=== PATIENT | female | born 1995 | race Two or more races ===

== ENCOUNTER 2021-02-10 06:46 | Inpatient (IN) | payer OTHER ==
[2021-02-10 07:43] VITALS: BMI 38.0
[2021-02-10 07:45] LABS: BASO % 0.3 % (0-2.0); EOS % 0.6 % (0-4.5); HEMATOCRIT 36.4 % (32.4-45.2); HEMOGLOBIN 12.4 GM/dL (10.7-15.3); LYMPH % 22.8 % (8-40); MCH 30.4 pg (25.7-33.7); MEAN CELL VOLUME 89.4 fl (80-96); NEUT % 69.3 % (42.8-82.8); PLATELET COUNT 179 10^3/uL (134-434); RBC 4.07 M/mm3 (3.60-5.2); RDW 14.4 % (11.6-15.6); WHITE BLOOD COUNT 11.5 K/mm3 (4.0-10.0)
[2021-02-10 07:53] LABS: INR 0.83 (0.83-1.09); PROTHROMBIN TIME (PATIENT) 10.3 SEC (9.7-13.0)
[2021-02-10 07:56] LABS: ACTIVATED PTT 26.9 SECONDS (25.2-36.5)
[2021-02-10] MEDS ORDERED: OXYTOCIN 30 UNITS in 0.9% NS 30 UNIT/500 ML INFUS.BAG IVPB SCH (08:00)
[2021-02-10] MEDS ORDERED: ELECTROLYTE-148 SOLN 1,000 ML IV SCH (08:00)
[2021-02-10] MEDS ORDERED: OXYTOCIN 30 UNITS in 0.9% NS 30 UNIT/500 ML INFUS.BAG IVPB ONE (08:07)
[2021-02-10 08:11] LABS: CALCIUM 8.9 mg/dL (8.5-10.1)
[2021-02-10 08:12] LABS: BLOOD UREA NITROGEN 8.2 mg/dL (7-18)
[2021-02-10] MEDS ORDERED: FENTANYL/BUPIVACAINE/NS/PF - PCEA - 50 ML DISP.SYRIN EP ONE (08:14)
[2021-02-10] MEDS ORDERED: PCA PUMP NR ONE (08:14)
[2021-02-10 08:16] LABS: CREATININE 0.5 mg/dL (0.55-1.3)
[2021-02-10] MEDS: FENTANYL/BUPIVACAINE/NS/PF - PCEA - 50 ML DISP.SYRIN EP SCH (08:50)
[2021-02-10 09:21] LABS: HIV INTERPRETATION NEGATIVE (NEGATIVE)
[2021-02-10] MEDS ORDERED: NALOXONE HCL 0.4 MG/ML VIAL IVPUSH PRN (09:54)
[2021-02-10] MEDS ORDERED: OXYTOCIN 20 UNITS in 0.9% NS 20 UNIT/1,000 ML INFUS.BAG IV ONE (11:11)
[2021-02-10] MEDS ORDERED: LIDOCAINE HCL 1% PRESERVATIVE FREE - 30ML VIAL ONE (11:11)
[2021-02-10] MEDS ORDERED: METHYLERGONOVINE MALEATE 0.2 MG/1 ML AMP IM PRN (11:48)
[2021-02-10] MEDS ORDERED: BENZOCAINE 20% 57 GM BOTTLE TP PRN (11:48)
[2021-02-10] MEDS ORDERED: BENZOCAINE 28 GM HEMORRHOIDAL OINTMENT TP PRN (11:48)
[2021-02-10] MEDS ORDERED: oxyCODONE HCL 5 MG TABLET PO PRN (11:48)
[2021-02-10] MEDS ORDERED: BISACODYL 10 MG SUPP.RECT RC PRN (11:48)
[2021-02-10] MEDS ORDERED: WITCH HAZEL 50% (TUCKS) 40 PAD/JAR PAD TP PRN (11:48)
[2021-02-10] MEDS ORDERED: IBUPROFEN 600 MG TABLET (FP) PO PRN (11:48)
[2021-02-10] MEDS ORDERED: ACETAMINOPHEN 325 MG TABLET (FP) PO PRN (11:48)
[2021-02-10] MEDS ORDERED: OXYTOCIN 20 UNITS in 0.9% NS 20 UNIT/1,000 ML INFUS.BAG IV SCH (12:00)
[2021-02-11 09:09] LABS: BASO % 0.6 % (0-2.0); EOS % 1.1 % (0-4.5); HEMATOCRIT 32.2 % (32.4-45.2); HEMOGLOBIN 11.1 GM/dL (10.7-15.3); LYMPH % 27.1 % (8-40); MCH 30.8 pg (25.7-33.7); MCHC 34.5 g/dl (32.0-36.0); MEAN CELL VOLUME 89.5 fl (80-96); MEAN PLT VOLUME 10.5 fl (7.5-11.1); MONO % 7.2 % (3.8-10.2); PLATELET COUNT 163 10^3/uL (134-434); RDW 14.1 % (11.6-15.6); WHITE BLOOD COUNT 10.4 K/mm3 (4.0-10.0)
[2021-02-11] MEDS: PRENATAL VITAMINS W/ FOLIC ACID TABLET (FP) PO SCH (09:39)
[2021-02-11] MEDS ORDERED: SENNOSIDES/DOCUSATE COMBO (SENNA PLUS) TABLET (UD) PO PRN (22:00)
[2021-02-12] MEDS: FENTANYL/BUPIVACAINE/NS/PF - PCEA - 50 ML DISP.SYRIN EP SCH (08:47)
[2021-02-12] MEDS: PRENATAL VITAMINS W/ FOLIC ACID TABLET (FP) PO SCH (09:27)
[2021-02-12 09:30] VITALS: BP 116/85; PULSE 93; TEMP 98.2
== END 2021-02-12 12:39 | disposition home or self-care (01) | DRG 807 ==
LOC: JLDR 06:46 → J3W 16:00
PROVIDERS: ADMIT Obstetrics & Gynecology; ATTEND Obstetrics & Gynecology
PROC: 10E0XZZ Delivery of Products of Conception, External Approach (ICD-10-PCS; principal; 2021-02-10)
PROC: 0W8NXZZ Division of Female Perineum, External Approach (ICD-10-PCS; 2021-02-10)
DX: O70.0 First degree perineal laceration during delivery (principal); Z37.0 Single live birth; Z3A.40 40 weeks gestation of pregnancy
CPT/HCPCS: 36415; 59409; 80048; 85025; 85610; 85730; 86780; 86850; 86900; 86901; 87389; C9803; U0003; U0005

== ENCOUNTER 2022-10-26 08:26 | Inpatient (IN) | payer OTHER ==
[2022-10-26] MEDS ORDERED: AMPICILLIN SODIUM 2 GM VIAL ONE (09:09)
[2022-10-26] MEDS ORDERED: AMPICILLIN - 2 GM in SODIUM CHLORIDE 100 ML IVPB ONE (09:15)
[2022-10-26] MEDS ORDERED: OXYTOCIN 30 UNITS in 0.9% NS 30 UNIT/500 ML INFUS.BAG IVPB SCH (09:45)
[2022-10-26] MEDS ORDERED: ELECTROLYTE-148 SOLN 1,000 ML IV SCH (09:45)
[2022-10-26 10:04] VITALS: BMI 38.0
[2022-10-26] MEDS ORDERED: OXYTOCIN 30 UNITS in 0.9% NS 30 UNIT/500 ML INFUS.BAG IVPB ONE (10:11)
[2022-10-26 10:15] LABS: BASO % 0.5 % (0-2.0); EOS % 0.6 % (0-4.5); HEMATOCRIT 33.8 % (32.4-45.2); HEMOGLOBIN 11.3 GM/dL (10.7-15.3); LYMPH % 25.6 % (8-40); MCH 29.1 pg (25.7-33.7); MCHC 33.5 g/dl (32.0-36.0); MEAN PLT VOLUME 11.7 fl (7.5-11.1); MONO % 7.2 % (3.8-10.2); NEUT % 66.1 % (42.8-82.8); PLATELET COUNT 135 10^3/uL (134-434); RBC 3.88 M/mm3 (3.60-5.2); RDW 13.9 % (11.6-15.6); WHITE BLOOD COUNT 9.2 K/mm3 (4.0-10.0)
[2022-10-26 10:22] LABS: INR 0.89 (0.83-1.09); PROTHROMBIN TIME (PATIENT) 10.3 SEC (9.7-13.0)
[2022-10-26 10:25] LABS: ACTIVATED PTT 26.7 SECONDS (25.2-36.5)
[2022-10-26 10:32] LABS: POTASSIUM 4.7 mmol/L (3.5-5.1)
[2022-10-26 10:34] LABS: BLOOD UREA NITROGEN 10.2 mg/dL (7-18); CALCIUM 8.9 mg/dL (8.5-10.1)
[2022-10-26 10:38] LABS: CREATININE 0.5 mg/dL (0.55-1.3)
[2022-10-26] MEDS ORDERED: AMPICILLIN - 1 GM in SODIUM CHLORIDE 100 ML IVPB SCH (13:15)
[2022-10-26] MEDS ORDERED: FENTANYL/BUPIVACAINE/NS/PF - PCEA - 50 ML DISP.SYRIN EP ONE (13:21)
[2022-10-26] MEDS ORDERED: NALOXONE HCL 0.4 MG/ML VIAL IVPUSH PRN (13:36)
[2022-10-26] MEDS ORDERED: AMPICILLIN SODIUM 1 GM VIAL ONE (13:37)
[2022-10-26 13:38] LABS: HIV INTERPRETATION NEGATIVE (NEGATIVE)
[2022-10-26] MEDS ORDERED: FENTANYL CITRATE/PF 50 MCG/ML VIAL ONE (13:39)
[2022-10-26] MEDS ORDERED: FENTANYL/BUPIVACAINE/NS/PF - PCEA - 50 ML DISP.SYRIN EP SCH (13:45)
[2022-10-26] MEDS ORDERED: OXYTOCIN 20 UNITS in 0.9% NS 20 UNIT/1,000 ML INFUS.BAG IV ONE (14:42)
[2022-10-26] MEDS ORDERED: WITCH HAZEL 50% (TUCKS) 40 PAD/JAR PAD TP PRN (15:08)
[2022-10-26] MEDS ORDERED: BENZOCAINE 28 GM HEMORRHOIDAL OINTMENT TP PRN (15:08)
[2022-10-26] MEDS ORDERED: oxyCODONE HCL 5 MG TABLET PO PRN (15:08)
[2022-10-26] MEDS ORDERED: BISACODYL 10 MG SUPP.RECT RC PRN (15:08)
[2022-10-26] MEDS ORDERED: ACETAMINOPHEN 325 MG TABLET (FP) PO PRN (15:08)
[2022-10-26] MEDS ORDERED: METHYLERGONOVINE MALEATE 0.2 MG/1 ML AMP IM PRN (15:08)
[2022-10-26] MEDS ORDERED: BENZOCAINE 20% 57 GM BOTTLE TP PRN (15:08)
[2022-10-26] MEDS ORDERED: OXYTOCIN 20 UNITS in 0.9% NS 20 UNIT/1,000 ML INFUS.BAG IV SCH (15:15)
[2022-10-26] MEDS: FERROUS SO4 325 MG TABLET (FP) PO SCH (18:21)
[2022-10-26] MEDS: IBUPROFEN 600 MG TABLET (FP) PO PRN (21:59)
[2022-10-27 07:17] LABS: BASO % 0.5 % (0-2.0); EOS % 1.1 % (0-4.5); HEMATOCRIT 35.1 % (32.4-45.2); HEMOGLOBIN 11.8 GM/dL (10.7-15.3); LYMPH % 27.9 % (8-40); MCH 29.3 pg (25.7-33.7); MCHC 33.6 g/dl (32.0-36.0); MEAN CELL VOLUME 87.3 fl (80-96); MEAN PLT VOLUME 11.4 fl (7.5-11.1); MONO % 7.3 % (3.8-10.2); NEUT % 63.2 % (42.8-82.8); PLATELET COUNT 140 10^3/uL (134-434); RBC 4.02 M/mm3 (3.60-5.2); RDW 13.7 % (11.6-15.6); WHITE BLOOD COUNT 10.2 K/mm3 (4.0-10.0)
[2022-10-27] MEDS: FERROUS SO4 325 MG TABLET (FP) PO SCH ×3 (08:44→18:19)
[2022-10-27] MEDS: PRENATAL VITAMINS W/ FOLIC ACID TABLET (FP) PO SCH (09:33)
[2022-10-27] MEDS: IBUPROFEN 600 MG TABLET (FP) PO PRN (11:56)
[2022-10-27] MEDS ORDERED: SENNOSIDES/DOCUSATE COMBO (SENNA PLUS) TABLET (UD) PO PRN (22:00)
[2022-10-27 22:07] VITALS: RESP 18
[2022-10-28] MEDS: PRENATAL VITAMINS W/ FOLIC ACID TABLET (FP) PO SCH (09:32)
[2022-10-28] MEDS: FERROUS SO4 325 MG TABLET (FP) PO SCH (09:32)
[2022-10-28] MEDS: IBUPROFEN 600 MG TABLET (FP) PO PRN (09:32)
[2022-10-28 09:35] VITALS: BP 107/74; PULSE 96; TEMP 98.6
== END 2022-10-28 12:50 | disposition home or self-care (01) | DRG 560 ==
LOC: JLDR 08:26 → J3W 17:00
PROVIDERS: ADMIT Obstetrics & Gynecology; ATTEND Obstetrics & Gynecology
PROC: 10E0XZZ Delivery of Products of Conception, External Approach (ICD-10-PCS; principal; 2022-10-26)
PROC: 0W8NXZZ Division of Female Perineum, External Approach (ICD-10-PCS; 2022-10-26)
PROC: 0HQ9XZZ Repair Perineum Skin, External Approach (ICD-10-PCS; 2022-10-26)
DX: O70.0 First degree perineal laceration during delivery (principal); O48.0 Post-term pregnancy; Z3A.40 40 weeks gestation of pregnancy; Z37.0 Single live birth
CPT/HCPCS: 36415; 80048; 85025; 85610; 85730; 86780; 86850; 86900; 86901; 87389; C9803-CS; U0003; U0005